=== PATIENT | male | born 1980 | race African-American/Black ===

== ENCOUNTER → 2017-02-12 | Outpatient (CLI) | payer OTHER ==
[~2017-02-12] MED LIST: GLIP-199 PO; GLIP5TAB11 PO; METF-384 PO; OMEP40CA41 PO
[2017-02-12 17:24] LABS: ALT/SGPT 29 U/L (12-78); BLOOD UREA NITROGEN 10 mg/dl (7-18); BUN/CREATININE RATIO 13.7 (10-20); CALCIUM 9.2 mg/dl (8.5-10.1); CARBON DIOXIDE 30 mmol/L (21-32); CHLORIDE 103 mmol/L (98-107); CREATININE 0.73 mg/dl (0.60-1.40); GLUCOSE 114 mg/dl (70-99); POTASSIUM 4.1 mmol/L (3.5-5.1); SODIUM 139 mmol/L (136-145)
[2017-02-12 17:34] LABS: ALB/GLOB RATIO 1.5 (0.9-2); ALKALINE PHOSPHATASE 46 U/L (45-117); AST/SGOT 18 U/L (15-37)
[2017-02-13 10:17] LABS: ESTIMATED AVERAGE GLUCOSE 143 mg/dl; HA1C FLAG Normal (Normal)
== END | disposition home or self-care (01) ==
LOC: C.LABBC 15:34
PROVIDERS: ATTEND Family Medicine
DX: E11.9 Type 2 diabetes mellitus without complications (principal); E55.9 Vitamin D deficiency, unspecified; G62.9 Polyneuropathy, unspecified

== ENCOUNTER 2017-08-12 16:04 | Emergency (ER) | payer OTHER ==
[~2017-08-12] VITALS: Ht 177.8 cm; Wt 86.0 kg
[2017-08-12 16:08] VITALS: TEMP 36.4; Ht 177.8 cm; Wt 86.0 kg
[2017-08-12 16:15] VITALS: O2SAT 98
[2017-08-12] MEDS ORDERED: METF-384 PO (16:29)
[2017-08-12] MEDS ORDERED: GLIP-199 PO (16:29)
[2017-08-12] MEDS ORDERED: GLIP5TAB11 PO (16:32)
[2017-08-12 16:34] LABS: BASO % 0.5 %; BASO ABS # 0.04 K/uL (0-0.2); COMPLETE YES; EOS % 1.6 %; HEMATOCRIT 45.7 % (42-52); IG% 0.1 %; LYMPH % 42.8 %; LYMPH ABS # 3.21 K/uL (1.2-3.4); MEAN CELL VOLUME 82.3 fL (80-100); MEAN CORPUSCULAR HEMOGLOBIN 28.1 pg (25-34); MEAN CORPUSCULAR HGB CONC 34.1 g/dl (32-36); MEAN PLATELET VOLUME 9.1 fL (7.4-10.4); MONO % 7.1 %; NEUT % 47.9 %; PLATELET COUNT 210 K/uL (130-400); RED BLOOD COUNT 5.55 M/uL (4.7-6.1)
[2017-08-12 16:43] LABS: PARTIAL THROMBOPLASTIN RATIO 1.1; PROTHROMBIN TIME (PATIENT) 10.7 SECONDS (9.0-12.0)
--- NOTE | 2017-08-12 16:45 | DIAGNOSTIC IMAGING REPORT ---
CHEST ONE VIEW PORTABLE CLINICAL HISTORY: CHEST PAIN dyspnea COMPARISON STUDY: No previous studies for comparison. FINDINGS: The bones soft tissues and hemidiaphragms are normal. The cardiomediastinal silhouette is normal. The lungs are clear. The pulmonary vasculature is normal. IMPRESSION: Negative chest. The above report was generated using voice recognition software. It may contain grammatical, syntax or spelling errors. Electronically signed by: Haseeb Engel M.D. 08/12/2017 4:43 PM Dictated Date/Time: 08/12/2017 4:43 PM
[2017-08-12 16:58] LABS: ALT/SGPT 30 U/L (12-78); BLOOD UREA NITROGEN 11 mg/dl (7-18); BUN/CREATININE RATIO 12.7 (10-20); CALCIUM 9.2 mg/dl (8.5-10.1); CARBON DIOXIDE 26 mmol/L (21-32); CHLORIDE 103 mmol/L (98-107); GLUCOSE 145 mg/dl (70-99); SODIUM 137 mmol/L (136-145)
[2017-08-12 17:03] LABS: ALKALINE PHOSPHATASE 53 U/L (45-117); AST/SGOT 17 U/L (15-37); CKMB/CK RATIO 1.9 (0-3.0)
[2017-08-12] MEDS ORDERED: PANTOprazole SOD 40 MG TAB PO STA (17:23)
[2017-08-12] MEDS ORDERED: OMEP40CA41 PO (17:25)
[2017-08-12 17:39] VITALS: BP 132/91; PULSE 82; O2SAT 98
--- NOTE | 2017-08-12 18:26 | EMERGENCY ROOM VISIT NOTE ---
History Report prepared by Megan: Kimberly España Under the Supervision of: Dr. Virgilio Mccullough D.O. First contact with patient: 16:15 Chief Complaint: CARDIAC ASSESSMENT Stated Complaint: DIFFICULTY BREATHING, CHEST DISCOMFORT- [facility] Nursing Triage Summary: Chest discomfort starting Sunday substernal in nature radiating to left arm and middle of upper back with associated shortness of breath. [facility], had normal EKG and normal CXR compelted, but referred pt to ED for further eval. History of Present Illness The patient is a 36 year old male who presents to the Emergency Room for a cardiac assessment. The patient reports that he has been having pain in the center of his chest and in between his shoulders. He states that the pain started last night and has made it difficult to breathe. The patient reports that he went to [facility] today when it seemed to worsen and they told him to come to the ED. The patient complains of numbness in his legs. The patient denies abdominal pain, nausea, vomiting, swelling in his legs, and pain in his legs. He notes he came to the [place] ago. The patient currently rates his pain as a 2/10 in severity. Source of History: patient Onset: last night Position: chest Symptom Intensity: 2/10 Quality: other (radiating) Timing: worsening Modifying Factors (Worsening): breathing Associated Symptoms: + SOB, + numbness, No nausea, No vomiting, No abdominal pain Note: The patient denies swelling and pain in his legs. Review of Systems See HPI for pertinent positives & negatives. A total of 10 systems reviewed and were otherwise negative. Past Medical & Surgical Medical Problems: (1) Diabetes Family History Hypertension Social History Smoking Status: Current Every Day Smoker Alcohol Use: occasionally Marital Status: single Housing Status: lives alone Current/Historical Medications Scheduled Glipizide (Glucotrol), 1 TAB PO DAILY Metformin Hcl (Glucophage), 1,000 MG PO BID Omeprazole (Prilosec), 40 MG PO DAILY Allergies Coded Allergies: No Known Allergies (Unverified , 08/12/17) Physical Exam Vital Signs Date Time Temp Pulse Resp B/P (MAP) Pulse Ox O2 Delivery O2 Flow Rate FiO2 08/12/17 17:39 82 16 132/91 98 08/12/17 17:24 82 20 137/85 100 Room Air 08/12/17 16:15 98 Room Air 08/12/17 16:08 97 Room Air 08/12/17 16:08 36.4 88 18 157/99 97 Room Air Physical Exam GENERAL: Patient is awake, alert, and in no acute distress. Patient is resting comfortably and showing no signs of anxiety EYES: The conjunctivae are clear. The pupils are round and reactive. EARS, NOSE, MOUTH AND THROAT: The nose is without any evidence of any deformity. Mucous membranes are moist tongue is midline NECK: The neck is nontender and supple. RESPIRATORY: Normal respiratory effort is noted there is no evidence of wheezing rhonchi or rales CARDIOVASCULAR: Regular rate and rhythm noted there no murmurs rubs or gallops normal S1 normal S2 GASTROINTESTINAL: The abdomen is soft. Bowel sounds are present in all quadrants. Abdomen is nontender MUSCULOSKELETAL/EXTREMITIES: There is no evidence of gross deformity full range of motion is noted in the hips and shoulders SKIN: There is no obvious evidence of any rash. There are no petechiae, pallor or cyanosis noted. NEUROLOGIC: Patient is awake alert and oriented x3. Medical Decision & Procedures ER Provider Diagnostic Interpretation: Radiology results as stated below per my review and radiologist interpretation: CHEST ONE VIEW PORTABLE CLINICAL HISTORY: CHEST PAIN dyspnea COMPARISON STUDY: No previous studies for comparison. FINDINGS: The bones soft tissues and hemidiaphragms are normal. The cardiomediastinal silhouette is normal. The lungs are clear. The pulmonary vasculature is normal. IMPRESSION: Negative chest. The above report was generated using voice recognition software. It may contain grammatical, syntax or spelling errors. Electronically signed by: Haseeb Engel M.D. 08/12/2017 4:43 PM Dictated Date/Time: 08/12/2017 4:43 PM Laboratory Results 08/12/17 16:20 Red Blood Count 5.55, Mean Corpuscular Volume 82.3, Mean Corpuscular Hemoglobin 28.1, Mean Corpuscular Hemoglobin Concent 34.1, Mean Platelet Volume 9.1, Neutrophils (%) (Auto) 47.9, Lymphocytes (%) (Auto) 42.8, Monocytes (%) (Auto) 7.1, Eosinophils (%) (Auto) 1.6, Basophils (%) (Auto) 0.5, Neutrophils # (Auto) 3.59, Lymphocytes # (Auto) 3.21, Monocytes # (Auto) 0.53, Eosinophils # (Auto) 0.12, Basophils # (Auto) 0.04 08/12/17 16:20 Test 08/12/17 16:20 08/12/17 16:31 White Blood Count 7.50 K/uL (4.8-10.8) Red Blood Count 5.55 M/uL (4.7-6.1) Hemoglobin 15.6 g/dL (14.0-18.0) Hematocrit 45.7 % (42-52) Mean Corpuscular Volume 82.3 fL (80-100) Mean Corpuscular Hemoglobin 28.1 pg (25-34) Mean Corpuscular Hemoglobin Concent 34.1 g/dl (32-36) Platelet Count 210 K/uL (130-400) Mean Platelet Volume 9.1 fL (7.4-10.4) Neutrophils (%) (Auto) 47.9 % Lymphocytes (%) (Auto) 42.8 % Monocytes (%) (Auto) 7.1 % Eosinophils (%) (Auto) 1.6 % Basophils (%) (Auto) 0.5 % Neutrophils # (Auto) 3.59 K/uL (1.4-6.5) Lymphocytes # (Auto) 3.21 K/uL (1.2-3.4) Monocytes # (Auto) 0.53 K/uL (0.11-0.59) Eosinophils # (Auto) 0.12 K/uL (0-0.5) Basophils # (Auto) 0.04 K/uL (0-0.2) RDW Standard Deviation 35.6 fL (36.4-46.3) RDW Coefficient of Variation 11.9 % (11.5-14.5) Immature Granulocyte % (Auto) 0.1 % Immature Granulocyte # (Auto) 0.01 K/uL (0.00-0.02) Prothrombin Time 10.7 SECONDS (9.0-12.0) Prothromb Time International Ratio 1.0 (0.9-1.1) Activated Partial Thromboplast Time 28.2 SECONDS (21.0-31.0) Partial Thromboplastin Ratio 1.1 Anion Gap 8.0 mmol/L (3-11) Est Creatinine Clear Calc Drug Dose 117.2 ml/min Estimated GFR () 126.9 Estimated GFR (Non- 109.5 BUN/Creatinine Ratio 12.7 (10-20) Calcium Level 9.2 mg/dl (8.5-10.1) Total Bilirubin 0.2 mg/dl (0.2-1) Direct Bilirubin < 0.1 mg/dl (0-0.2) Aspartate Amino Transf (AST/SGOT) 17 U/L (15-37) Alanine Aminotransferase (ALT/SGPT) 30 U/L (12-78) Alkaline Phosphatase 53 U/L (45-117) Total Creatine Kinase 91 U/L (39-308) Creatine Kinase MB 1.7 ng/ml (0.5-3.6) Creatine Kinase MB Ratio 1.9 (0-3.0) Troponin I < 0.015 ng/ml (0-0.045) Total Protein 7.7 gm/dl (6.4-8.2) Albumin 4.4 gm/dl (3.4-5.0) Lipase 306 U/L (73-393) Bedside D-Dimer 120 ng/mlFEU (0-450) Laboratory results per my review. Medications Administered Medications (Trade) Dose Ordered Sig/Tomas Route Start Time Stop Time Status Last Admin Dose Admin Pantoprazole Sodium (Protonix Tab) 40 mg NOW STAT PO 08/12/17 17:23 08/12/17 17:24 DC 08/12/17 17:35 40 MG ECG Indication: chest pain Rate (beats per minute): 86 Findings: no ectopy, other (no acute ST segment changes) Comparison ECG Date: from tracing earlier today Change: no significant change ED Course 1618: The patient was evaluated in room A2. A complete history and physical examination were performed. 1722: Ordered Protonix Tab 40 mg PO. 0: Upon reevaluation, the patient is resting comfortably. I discussed the results and treatment plan with him. He verbalized agreement of the treatment plan. The patient was discharged home. Medical Decision Etiologies such as cardiac ischemia, aortic dissection, pulmonary embolism, pneumonia, pneumothorax, musculoskeletal, infections, pericarditis, myocarditis , esophageal rupture, gastrointestinal, as well as others were entertained. Nursing notes reviewed. The patient's EKG from [facility] was also reviewed. The patient is a 36-year-old male who presented to the emergency department with epigastric and retrosternal pain which went to his back. He has had ongoing symptoms for 24 hours and his cardiac biomarkers were negative. I discussed the patient's laboratory radiographic studies with him. I also discussed the limitations of the emergency department workup for chest pain with him. He does have some risk factors. At this time I've recommended that he rest and avoid any strenuous activity. He was also encouraged to continue all medications as prescribed and follow-up with his family doctor this week for reevaluation and possible stress testing. He also encouraged to return to the emergency department immediately if symptoms change worsen or if the need arises. Impression Primary Impression: Retrosternal chest pain Scribe Attestation The scribe's documentation has been prepared under my direction and personally reviewed by me in its entirety. I confirm that the note above accurately reflects all work, treatment, procedures, and medical decision making performed by me. Departure Information Dispostion Home / Self-Care Prescriptions Omeprazole (PRILOSEC) 40 Mg Cap 40 MG PO DAILY, #30 CAP Prov: Virgilio Mccullough, DO 08/12/17 Referrals No Doctor, Assigned (PCP) Forms IMPORTANT VISIT INFORMATION Patient Instructions My [facility] Additional Instructions Continue all medications as prescribed. Try using Maalox or Mylanta for symptomatically relief. Follow-up with your family doctor soon as possible. Discussed the possibility that you may require a referral to a sandal parts assembler to further evaluate the cause of her discomfort. Avoid any strenuous activity. Return to the emergency apartment immediately if symptoms change worsen or the need arises.
== END 2017-08-12 17:40 | disposition home or self-care (01) ==
LOC: C.EDB 16:08 → C.EDA 17:40
DX: R07.89 Other chest pain (principal); E11.9 Type 2 diabetes mellitus without complications; F17.200 Nicotine dependence, unspecified, uncomplicated; Z82.49 Family history of ischemic heart disease and other diseases of the circulatory system; Z79.84 Long term (current) use of oral hypoglycemic drugs

== ENCOUNTER → 2017-10-17 | Outpatient (CLI) | payer OTHER ==
[~2017-10-17] MED LIST changes: -GLIP-199 PO; -OMEP40CA41 PO
[2017-10-17 13:57] LABS: ESTIMATED AVERAGE GLUCOSE 143 mg/dl; HA1C FLAG Normal (Normal)
== END | disposition home or self-care (01) ==
LOC: C.LABBC 10:50
PROVIDERS: ATTEND Physician Assistant
DX: E11.9 Type 2 diabetes mellitus without complications (principal); E55.9 Vitamin D deficiency, unspecified

== ENCOUNTER → 2018-04-10 | Outpatient (CLI) | payer OTHER ==
[2018-04-10 16:51] LABS: BASO % 0.8 %; BASO ABS # 0.04 K/uL (0-0.2); EOS % 2.4 %; EOS ABS # 0.13 K/uL (0-0.5); HEMOGLOBIN 14.4 g/dL (14.0-18.0); IG# 0.01 K/uL (0.00-0.02); LYMPH % 43.3 %; LYMPH ABS # 2.31 K/uL (1.2-3.4); MEAN CORPUSCULAR HEMOGLOBIN 29.1 pg (25-34); MEAN CORPUSCULAR HGB CONC 35.1 g/dl (32-36); MEAN PLATELET VOLUME 9.7 fL (7.4-10.4); MONO % 7.9 %; MONO ABS # 0.42 K/uL (0.11-0.59); NEUT % 45.4 %; NEUT ABS # 2.42 K/uL (1.4-6.5); PLATELET COUNT 193 K/uL (130-400); RED CELL DISTRIBUTION WIDTH CV 12.7 % (11.5-14.5); RED CELL DISTRIBUTION WIDTH SD 38.1 fL (36.4-46.3); WHITE BLOOD COUNT 5.33 K/uL (4.8-10.8)
[2018-04-10 17:20] LABS: ALKALINE PHOSPHATASE 50 U/L (45-117); ALT/SGPT 24 U/L (12-78); AST/SGOT 16 U/L (15-37); BLOOD UREA NITROGEN 10 mg/dl (7-18); CALCIUM 8.9 mg/dl (8.5-10.1); CARBON DIOXIDE 28 mmol/L (21-32); CHOLESTEROL 163 mg/dl (0-200); CREATININE 1.02 mg/dl (0.60-1.40); GLUCOSE 130 mg/dl (70-99); LDL CHOLESTEROL CALCULATED 90 mg/dl; POTASSIUM 4.6 mmol/L (3.5-5.1); SODIUM 139 mmol/L (136-145); TOTAL PROTEIN 7.4 gm/dl (6.4-8.2)
== END | disposition home or self-care (01) ==
LOC: C.LABBC 14:03
PROVIDERS: ATTEND Family Medicine Adult Medicine
DX: E11.9 Type 2 diabetes mellitus without complications (principal); E55.9 Vitamin D deficiency, unspecified; R10.13 Epigastric pain